=== PATIENT | male | born 1955 | race Caucasian/White ===

== ENCOUNTER → 2018-01-08 | Outpatient (CLI) | payer OTHER ==
--- NOTE | 2018-01-08 13:16 | ECHOF ---
Referral Reason:I25.10 Atherosclerotic heart disease MEASUREMENTS -------- HEIGHT: 185.4 cm WEIGHT: 136.1 kg BP: RVIDd: 3.4 cm (< 3.3) IVSd: 1.2 cm (0.6 - 1.1) LVIDd: 6.0 cm (3.9 - 5.3) LVPWd: 1.2 cm (0.6 - 1.1) IVSs: 1.5 cm LVIDs: 4.3 cm LVPWs: 1.5 cm LAESV Index (A-L): 31.31 ml/m Ao Diam: 3.6 cm (2.0 - 3.7) AV Cusp: 2.3 cm (1.5 - 2.6) LA Diam: 4.1 cm (2.7 - 3.8) MV E Eleazar: 0.60 m/s MV DecT: 303 ms MV A Eleazar: 0.85 m/s MV E/A Ratio: 0.71 RAP: 5.00 mmHg RVSP: 11.40 mmHg FINDINGS -------- Sinus rhythm. This was a technically difficult study with suboptimal views. The left ventricular size is normal. There is mild concentric left ventricular hypertrophy. Overa ll left ventricular systolic function is mildly impaired with, an EF between 45 - 50 %. The right ventricle is mildly enlarged. LA is midly dilated 29-33ml/m2. RA appears enlarged. 3 ml of Lumason was utilized for enhancement of images. There is mild aortic valve sclerosis. There is mild aortic regurgitation. There is no evidence of aortic stenosis. Mild mitral annular calcification present. There is trace to mild mitral regurgitation. Trace tricuspid regurgitation present. Right ventricular systolic pressure is normal at < 35 mmHg. There is no evidence of pulmonary hypertension. The pulmonic valve was not well visualized. The aortic root is borderline dilated, up to 3.8 cm. IVC Not well visulized. There is no pericardial effusion. CONCLUSIONS -------- 1. Sinus rhythm. 2. This was a technically difficult study with suboptimal views. 3. The left ventricular size is normal. 4. There is mild concentric left ventricular hypertrophy. 5. Overall left ventricular systolic function is mildly impaired with, an EF between 45 - 50 %. 6. The right ventricle is mildly enlarged. 7. LA is midly dilated 29-33ml/m2. 8. RA appears enlarged. 9. 3 ml of Lumason was utilized for enhancement of images. 10. There is mild aortic valve sclerosis. 11. There is mild aortic regurgitation. 12. Mild mitral annular calcification present. 13. There is trace to mild mitral regurgitation. 14. Trace tricuspid regurgitation present. 15. Right ventricular systolic pressure is normal at < 35 mmHg. 16. There is no evidence of pulmonary hypertension. 17. The pulmonic valve was not well visualized. 18. The aortic root is borderline dilated, up to 3.8 cm. 19. IVC Not well visulized. 20. There is no pericardial effusion. WATER SPONGER: Bassam Escudero RDCS
== END | disposition home or self-care (01) ==
LOC: RADECHMAIN 11:38
PROVIDERS: ATTEND Family Medicine
DX: I50.1 Left ventricular failure, unspecified (principal); I35.8 Other nonrheumatic aortic valve disorders; I35.1 Nonrheumatic aortic (valve) insufficiency; I25.10 Atherosclerotic heart disease of native coronary artery without angina pectoris
CPT/HCPCS: 93306; Q9950

== ENCOUNTER → 2018-12-17 | Outpatient (CLI) | payer OTHER ==
[2018-12-17 06:23] LABS: African American GFR (CKD) >90 (>60 ml/min/1.73 sqM); Blood Urea Nitrogen 11 mg/dL (9-20)
--- NOTE | 2018-12-17 10:49 | CT ---
EXAMINATION TYPE: CT angio abd aorta w/Runoff DATE OF EXAM: 12/17/2018 COMPARISON: NONE. HISTORY: Femoral occlusion CT DLP: 4054.2 mGycm, Automated Exposure Control for Dose Reduction was Utilized. CONTRAST: CTA scan of the abdomen and pelvis with lower extremity runoff is performed without oral and without and with IV Contrast, patient injected with 125 mL of Isovue 370. Three-D reconstructed images are cr eated and apparent workstation and reviewed. FINDINGS: VASCULAR: Some ectasia to the abdominal aorta with mild to moderate peripheral calcified plaque. No g reater than 3 cm aneurysmal change. Patent celiac artery, SMA, bilateral single renal arteries and IM A without significant stenosis. Lzjg-[id number] calcified plaque bilateral common femoral arteries extending into internal iliac art eries without significant stenosis. Minimal plaque bilateral external iliac arteries without signific ant stenosis becoming more mild distal lead in the right groin. Mild calcified plaque right common femoral artery level. No significant plaque or stenosis in the tristan p femoral artery. Moderate to severe calcified plaque along the superficial femoral artery extending into popliteal artery. Significant stenosis is still present for reference distal right superficial f emoral artery image 144 series 8. There is complete occlusion of the proximal right popliteal artery just [id number] axial image 168 with noncalcified plaque or occlusion. There is some reconstituti on below knee beginning at axial image 190 with poor visualization of bifurcation and trifurcation. S ome flow in the posterior tibial artery and dorsalis pedis is present. Mild plaque left common femoral artery. Patent left deep femoral artery with mild calcified plaque bu t no significant stenosis. Moderate to severe calcified plaque along the left superficial femoral art mireya with patent stent graft mid to distal aspect. More severe plaque near origin of the proximal left popliteal artery just [id number]. No significant stenosis. Satisfactory bifurcation and trifurca tion with mild calcified plaque. Good three-vessel flow within the mid to distal leg and two-vessel f low in the distal leg and ankle extending into hindfoot. LUNG BASES: No significant abnormality is appreciated. LIVER/GB:. Cholecystectomy clips are seen. Liver is diffusely low density are slightly hypodense rela tive to spleen on noncontrast images, CT findings consistent with mild diffuse fatty infiltration. PANCREAS: Mild to moderate focal fatty infiltration at level pancreatic head. SPLEEN: No significant abnormality is seen. ADRENALS: Slight thickening of both adrenal glands favors benign hyperplasia. KIDNEYS: No significant abnormality is seen. BOWEL: No significant abnormality is seen. PROSTATE/SEMINAL VESICLES: No gross abnormality seen. LYMPH NODES: No greater than 1cm abdominal or pelvic lymph nodes are appreciated. OSSEOUS STRUCTURES: Multilevel spurring in the thoracolumbar spine is present. Multilevel vacuum dis c phenomenon and moderate disc space narrowing lower lumbar levels. Facet arthropathy lower lumbar le vels. Moderate narrowing of both hip joints. EXTREMITIES: Moderate narrowing medial tibiofemoral compartments bilaterally. Moderate narrowing cedillo llofemoral compartments bilaterally. OTHER: No significant additional abnormality is seen. IMPRESSION: Complete occlusion of the right proximal popliteal artery just above knee with reconstitu tion but poor flow throughout the right leg and ankle noted. Patent left sided mid to distal SFA sten t graft without significant stenosis in the left lower extremity.
== END | disposition home or self-care (01) ==
LOC: RADCTMAIN 05:50
PROVIDERS: ATTEND Surgery
DX: I77.1 Stricture of artery (principal)
CPT/HCPCS: 82565; 84520; 75635; 36415; Q9967

== ENCOUNTER → 2019-02-03 | Outpatient (CLI) | payer OTHER ==
[2019-02-03 16:46] LABS: Basophils # (A) 0.1 k/uL (0-0.2); Basophils % (A) 1 %; Eosinophils # (A) 0.5 k/uL (0-0.7); Eosinophils % (A) 6 %; HCT 41.4 % (39.0-53.0); HGB 14.1 gm/dL (13.0-17.5); Lymphocytes # (A) 3.1 k/uL (1.0-4.8); Lymphocytes % (A) 38 %; MCH 31.1 pg (25.0-35.0); MCHC 34.1 g/dL (31.0-37.0); MCV 91.1 fL (80.0-100.0); Mean Platelet Volume 6.6; Monocytes # (A) 0.5 k/uL (0-1.0); Monocytes % (A) 6 %; Neutrophils # (A) 3.8 k/uL (1.3-7.7); Neutrophils % (A) 47 %; Platelet Count 280 k/uL (150-450); RBC 4.55 m/uL (4.30-5.90); RDW 12.4 % (11.5-15.5); WBC 8.1 k/uL (3.8-10.6)
[2019-02-03 16:52] LABS: African American GFR (CKD) >90 (>60 ml/min/1.73 sqM); Anion Gap 11 mmol/L; Blood Urea Nitrogen 12 mg/dL (9-20); Carbon Dioxide 23 mmol/L (22-30); Chloride 105 mmol/L (98-107); Potassium 4.3 mmol/L (3.5-5.1); Sodium 139 mmol/L (137-145)
== END | disposition home or self-care (01) ==
LOC: LABPAT 14:43
PROVIDERS: ATTEND Surgery
DX: Z01.812 Encounter for preprocedural laboratory examination (principal); I73.9 Peripheral vascular disease, unspecified
CPT/HCPCS: 80051; 82565; 84520; 85025

== ENCOUNTER → 2019-02-11 | Day surgery (SDC) | payer OTHER ==
[2019-02-09 13:43] VITALS: BMI 40.8
[~2019-02-11] MED LIST: ALPRAZolam 0.25 MG TAB PO PRN; ASPIRIN 325 MG TAB PO STA; ASPIRIN 81 MG PO SCH; CLOPIDOGREL 75 MG TAB PO SCH; HEPARIN SODIUM,PORCINE 10,000 UNIT/ML 1 ML VIAL ONE; HYDROcodone/APAP 5-325MG 1 EACH TAB PO PRN; IOPAMIDOL-300 100ML BTL INJ ONE; LIDOCAINE 1% INJ 10MG/ML (20 ML MDV) SQ ONE; MIDAZOLAM 2 MG/2 ML VIAL ONE; PROPOFOL 10 MG/ML 20 ML VIAL IV ONE; PROTAMINE SULFATE 10 MG/ML 5 ML VIAL IV ONE; SODIUM CHLORIDE 0.9% 1,000 ML IV ONE; SODIUM CHLORIDE 0.9% 1,000 ML in EMPTY BAG 1 BAG IV ONE; fentaNYL (PF) 50 MCG/ML 2 ML AMP ONE
[2019-02-11 08:15] LABS: Glucose,Whole Blood 121 mg/dL (75-99)
[2019-02-11 08:17] VITALS: RESP 18; TEMP 98
--- NOTE | 2019-02-11 10:46 | P.OP ---
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 #2: Selective catheterization right superficial femoral artery from a contralateral approach. #3: Right femoral angiogram. #4: Attempted atherectomy of the right distal SFA/popliteal arterial segment which was not able to be completed. Implants: None. Anesthesia: other (Local with IV sedation administered by anesthesia.) Surgeon: Saad Godoy Estimated Blood Loss (ml): 10 Urine output (ml): 0 Pathology: none sent Condition: stable Disposition: same day Indications for Procedure: Patient is a 63-year-old male who presented the office with a chief complaint of right calf claudication which he described as lifestyle limiting. He had previously undergone a left femoral balloon dilation and stent placement in the distant past performed at a outside institution. Physical examination revealed femoral pulses be intact with the popliteal, DP and PT pulses are absent bilaterally. CT angiogram of the abdomen, pelvic and lower extremity vessels was performed. This demonstrated occlusion of the left superficial femoral artery and previously implanted stent as well as stenotic/occlusive disease involving the distal SFA and popliteal arterial segments on the right. The op tions for the patient including continued nonoperative management versus attempt at percutaneous therapy versus open surgical therapy were reviewed with the patient. Patient wished to proceed with attempt at atherectomy. Operative Findings: Patient was brought to the imaging suite. He received attended anesthesia delivered by the department of anesthesiology. Both groins were sterilely prepped and draped in usual manner. 2% Xylocaine was lysed local anesthesia tissues overlying the left femoral pulse. With the aid of ultrasound a multipurpose needle was utilized to cannulate the artery. Once cannulated soft-tip guidewire was advanced. The needle was withdrawn and a 5-Italian sheath was placed. The patient received 7500 units of heparin. Guidewire and catheter combination were utilized to cross the aortic bifurcation and guidewire is advanced down into the superficial femoral artery on the right. The short sheath was then exchanged for a 6-Italian open and over catheter and this was position in the origin of the right superficial femoral artery. Right femoral angiogram was performed. This demonstrated total occlusion of the right distal SFA/popliteal artery. Occlusion continued through the popliteal artery and its entirety. The anterior tibial artery was occluded shortly after its takeoff. The tibial peroneal trunk was occluded and the peroneal artery was visualized from its takeoff from the tibial peroneal trunk and appeared to be a reasonably healthy vessel. The posterior tibial artery did refill via collaterals at the mid and distal calf levels. Multiple catheter and guidewire combinations were utilized in attempt to cross the occluded segment. The occlusion could not be crossed and the procedure was then aborted. The sheath was withdrawn and pressure held at the puncture site until all evidence of bleeding ceased. Patient did receive 20 mg of protamine to reverse the heparin effect prior to pulling of the sheath. Patient tolerated procedure well. He was taken to the outpatient area in satisfactory and stable condition.
--- NOTE | 2019-02-11 10:49 | IR ---
Fluoroscopy HISTORY: Pain right leg 15.2 minutes fluoroscopy time supplied to the referring clinician. 147 intraoperative C-arm images d ocument the procedure. See dictated report from vascular surgery.
[2019-02-11 14:48] VITALS: BP 154/75; PULSE 70
== END ==
LOC: OR 07:47
PROVIDERS: ATTEND Surgery
DX: I70.211 Atherosclerosis of native arteries of extremities with intermittent claudication, right leg (principal); I70.92 Chronic total occlusion of artery of the extremities; E11.51 Type 2 diabetes mellitus with diabetic peripheral angiopathy without gangrene; I25.10 Atherosclerotic heart disease of native coronary artery without angina pectoris; I10 Essential (primary) hypertension; E78.5 Hyperlipidemia, unspecified; G47.33 Obstructive sleep apnea (adult) (pediatric); Z87.891 Personal history of nicotine dependence; Z79.899 Other long term (current) drug therapy; Z79.84 Long term (current) use of oral hypoglycemic drugs; Z79.82 Long term (current) use of aspirin; Z98.890 Other specified postprocedural states; Z95.820 Peripheral vascular angioplasty status with implants and grafts; Z95.5 Presence of coronary angioplasty implant and graft
CPT/HCPCS: 36246; 75710; 76937; C1769 ×6; C1894 ×2; C1887; J2250; J2720; J1644; J2001; J3010; J2704; Q9967